=== PATIENT | male | born 1995 ===

== ENCOUNTER 2025-01-14 16:05 | Emergency (ER) | payer SELFPAY ==
[2025-01-14 16:06] VITALS: BP 138/82; PULSE 85; RESP 18; TEMP 37.3; O2SAT 97; BMI 21.4
[2025-01-14 16:32] VITALS: PULSE 80; O2SAT 98
--- NOTE | 2025-01-14 16:43 | PC.NURSE ---
PATIENT STATED THAT HE DID NOT WANT TO BE SEEN OR TREATED BY ED PROVIDER SINCE CHEST PAIN HAD RESOLVED. PATIENT IS GOING TO LEAVE AND WILL HAVE A FAMILY MEMBER PICK HIM UP. RISK OF LEAVING BEFORE MEDICAL SCREEN EXAM EXPLAINED TO PATIENT INCLUDING THE POSSIBILITY OF WORSENING OR . PATIENT VERBALIZED UNDERSTANDING AND STATES WILL RETURN IF WORSENING.
== END 2025-01-14 16:45 | disposition left against medical advice (07) ==
LOC: SERX 17:11
PROVIDERS: Emergency Provider Emergency Medicine
DX: Z53.21 Procedure and treatment not carried out due to patient leaving prior to being seen by health care provider (principal)
CPT/HCPCS: 99282